=== PATIENT | male | born 1990 | race Two or more races ===

== ENCOUNTER 2018-09-17 18:13 | Emergency (ER) | payer SELFPAY ==
[~2018-09-17] VITALS: Ht 188 cm; Wt 95.3 kg
[2018-09-17 18:25] VITALS: BP 128/76
[2018-09-17] MEDS ORDERED: LORazepam Inj 2mg/ml 1ml IM ONE (18:45)
[2018-09-17] MEDS ORDERED: DiphenhydrAMINE 50mg/ml Inj IM ONE (18:45)
[2018-09-17] MEDS ORDERED: Haloperidol 5mg/ml Inj IM ONE (18:45)
[2018-09-17 19:38] LABS: BASOPHILS % (AUTO) 1.9 % (0.0-2.0); EOSINOPHILS % (AUTO) 1.7 % (0.0-3.0); HEMATOCRIT 37.7 % (42.0-52.0); HEMOGLOBIN 12.7 G/DL (14.2-18.0); LYMPHOCYTES % (AUTO) 40.4 % (20.0-45.0); MEAN CORPUSCULAR VOLUME 84 FL (80-99); MONOCYTES % (AUTO) 11.8 % (1.0-10.0); NEUTROPHILS % (AUTO) 44.2 % (45.0-75.0); PLATELET COUNT 309 K/UL (150-450); RED CELL DISTRIBUTION WIDTH 12.3 % (11.6-14.8); WHITE BLOOD COUNT 3.8 K/UL (4.8-10.8)
[2018-09-17 19:49] LABS: ANION GAP 11 mmol/L (5-15); BLOOD UREA NITROGEN 10 mg/dL (7-18); CALCIUM 9.1 MG/DL (8.5-10.1); CARBON DIOXIDE 27 MMOL/L (21-32); CHLORIDE 107 MMOL/L (98-107); CREATININE 1.2 MG/DL (0.55-1.30); POTASSIUM 3.1 MMOL/L (3.5-5.1); SODIUM 145 MMOL/L (136-145)
[2018-09-17 19:54] LABS: ALANINE AMINOTRANSFERASE 39 U/L (12-78); ALBUMIN 4.1 G/DL (3.4-5.0); ALBUMIN/GLOBULIN RATIO 1.5 (1.0-2.7); ALKALINE PHOSPHATASE 55 U/L (46-116); ASPARTATE AMINO TRANSFERASE 45 U/L (15-37); BILIRUBIN,TOTAL 0.6 MG/DL (0.2-1.0)
--- NOTE | 2018-09-17 19:58 | Emergency Room Report ---
History of Present Illness General Chief Complaint: Behavioral Complaint Source: EMS (Dain Wells MD) Present Illness HPI Patient is a 28-year-old male brought in by EMS with [employer] reportedly throwing objects at a store. Patient was noted to be behaving somewhat bizarrely. History is markedly limited by poor historian. (Dain Wells MD) Allergies: Coded Allergies: No Known Allergies (Unverified , 09/17/18) Patient History Past Medical History: see triage record Reviewed Nursing Documentation: PMH: Agreed; PSxH: Agreed (Dain Wells MD) Nursing Documentation-PMH Past Medical History: No Stated History (Dain Wells MD) Review of Systems All Other Systems: limited - Review of systems: Review systems is limited by patient's being a poor historian (Dain Wells MD) Physical Exam Vital Signs Date Time Temp Pulse Resp B/P (MAP) Pulse Ox O2 Delivery O2 Flow Rate FiO2 09/17/18 18:08 100 20 134/80 (98) 99 Room Air General Appearance: normal inspection, alert/responsive Eyes: normal eye exam ENT: hearing intact Respiratory: normal inspection, effort normal Gastrointestinal: normal inspection, non-tender, no mass Musculoskeletal: normal inspection Neurologic: CN II-XII intact, motor strength/tone normal, other - Speech normal. Psychiatric: other - Speech coherent without any definite slurring. Poorly cooperative Skin: normal inspection (Dain Wells MD) Medical Decision Making Diagnostic Impression: Primary Impression: Substance abuse ER Course Patient presented for increased agitation. Differential diagnoses include substance abuse, psychosis, bipolar disorder, depression, malingering. Patient was noted to have no external signs of trauma. Patient was placed medicated with Haldol, Ativan and Benadryl due to agitation. Patient was noted to have some improvment in agitation subsequently. Patient was endorsed to Dr. Glover pending reevaluation. Labs Test 09/17/18 19:27 White Blood Count 3.8 K/UL (4.8-10.8) Red Blood Count 4.50 M/UL (4.70-6.10) Hemoglobin 12.7 G/DL (14.2-18.0) Hematocrit 37.7 % (42.0-52.0) Mean Corpuscular Volume 84 FL (80-99) Mean Corpuscular Hemoglobin 28.1 PG (27.0-31.0) Mean Corpuscular Hemoglobin Concent 33.6 G/DL (32.0-36.0) Red Cell Distribution Width 12.3 % (11.6-14.8) Platelet Count 309 K/UL (150-450) Mean Platelet Volume 5.0 FL (6.5-10.1) Neutrophils (%) (Auto) 44.2 % (45.0-75.0) Lymphocytes (%) (Auto) 40.4 % (20.0-45.0) Monocytes (%) (Auto) 11.8 % (1.0-10.0) Eosinophils (%) (Auto) 1.7 % (0.0-3.0) Basophils (%) (Auto) 1.9 % (0.0-2.0) Sodium Level 145 MMOL/L (136-145) Potassium Level 3.1 MMOL/L (3.5-5.1) Chloride Level 107 MMOL/L (98-107) Carbon Dioxide Level 27 MMOL/L (21-32) Anion Gap 11 mmol/L (5-15) Blood Urea Nitrogen 10 mg/dL (7-18) Creatinine 1.2 MG/DL (0.55-1.30) Estimat Glomerular Filtration Rate > 60 mL/min (>60) Glucose Level 95 MG/DL (74-106) Calcium Level 9.1 MG/DL (8.5-10.1) Total Bilirubin 0.6 MG/DL (0.2-1.0) Aspartate Amino Transf (AST/SGOT) 45 U/L (15-37) Alanine Aminotransferase (ALT/SGPT) 39 U/L (12-78) Alkaline Phosphatase 55 U/L (46-116) Total Protein 6.9 G/DL (6.4-8.2) Albumin 4.1 G/DL (3.4-5.0) Globulin 2.8 g/dL Albumin/Globulin Ratio 1.5 (1.0-2.7) Salicylates Level 0.9 ug/mL (2.8-20) Urine Opiates Screen Negative (NEGATIVE) Acetaminophen Level < 2 MCG/ML (10-30) Urine Barbiturates Screen Negative (NEGATIVE) Phencyclidine (PCP) Screen Negative (NEGATIVE) Urine Amphetamines Screen Positive (NEGATIVE) Urine Benzodiazepines Screen Negative (NEGATIVE) Urine Cocaine Screen Negative (NEGATIVE) Urine Marijuana (THC) Screen Negative (NEGATIVE) Serum Alcohol < 3 mg/dL (Dain Wells MD) ER Course Patient rested comfortably throughout the night This morning at approximately 6:00 patient has awakened His name was obtained patient reports that he has been on Seroquel previously and requesting that medication. Denies any homicidal or suicidal thoughts Patient was provided with medication here and stable for close follow-up does not meet criteria for further psychiatric evaluation at this time Labs Test 09/17/18 19:27 White Blood Count 3.8 K/UL (4.8-10.8) Red Blood Count 4.50 M/UL (4.70-6.10) Hemoglobin 12.7 G/DL (14.2-18.0) Hematocrit 37.7 % (42.0-52.0) Mean Corpuscular Volume 84 FL (80-99) Mean Corpuscular Hemoglobin 28.1 PG (27.0-31.0) Mean Corpuscular Hemoglobin Concent 33.6 G/DL (32.0-36.0) Red Cell Distribution Width 12.3 % (11.6-14.8) Platelet Count 309 K/UL (150-450) Mean Platelet Volume 5.0 FL (6.5-10.1) Neutrophils (%) (Auto) 44.2 % (45.0-75.0) Lymphocytes (%) (Auto) 40.4 % (20.0-45.0) Monocytes (%) (Auto) 11.8 % (1.0-10.0) Eosinophils (%) (Auto) 1.7 % (0.0-3.0) Basophils (%) (Auto) 1.9 % (0.0-2.0) Sodium Level 145 MMOL/L (136-145) Potassium Level 3.1 MMOL/L (3.5-5.1) Chloride Level 107 MMOL/L (98-107) Carbon Dioxide Level 27 MMOL/L (21-32) Anion Gap 11 mmol/L (5-15) Blood Urea Nitrogen 10 mg/dL (7-18) Creatinine 1.2 MG/DL (0.55-1.30) Estimat Glomerular Filtration Rate > 60 mL/min (>60) Glucose Level 95 MG/DL (74-106) Calcium Level 9.1 MG/DL (8.5-10.1) Total Bilirubin 0.6 MG/DL (0.2-1.0) Aspartate Amino Transf (AST/SGOT) 45 U/L (15-37) Alanine Aminotransferase (ALT/SGPT) 39 U/L (12-78) Alkaline Phosphatase 55 U/L (46-116) Total Protein 6.9 G/DL (6.4-8.2) Albumin 4.1 G/DL (3.4-5.0) Globulin 2.8 g/dL Albumin/Globulin Ratio 1.5 (1.0-2.7) Salicylates Level 0.9 ug/mL (2.8-20) Urine Opiates Screen Negative (NEGATIVE) Acetaminophen Level < 2 MCG/ML (10-30) Urine Barbiturates Screen Negative (NEGATIVE) Phencyclidine (PCP) Screen Negative (NEGATIVE) Urine Amphetamines Screen Positive (NEGATIVE) Urine Benzodiazepines Screen Negative (NEGATIVE) Urine Cocaine Screen Negative (NEGATIVE) Urine Marijuana (THC) Screen Negative (NEGATIVE) Serum Alcohol < 3 mg/dL (Kary Glover DO) Last Vital Signs Date Time Temp Pulse Resp B/P (MAP) Pulse Ox O2 Delivery O2 Flow Rate FiO2 09/17/18 18:25 98 18 128/76 100 Room Air (Dain Wells MD) Status: improved (Kary Glover DO) Disposition: HOME, SELF-CARE Condition: Improved Scripts Quetiapine Fumarate* (SEROQUEL*) 100 Mg Tablet 100 MG ORAL DAILY, #20 TAB Prov: Kary Glover DO 09/18/18 Additional Instructions: Patient is provided with the discharge instructions notified to follow up with primary doctor in the next 2-3 days otherwise return to the er with any worsening symptoms. Please note that this report is being documented using [employer] technology. This can lead to erroneous entry secondary to incorrect interpretation by the dictating instrument. Dain Wells MD Sep 17, 2018 19:58 Kary Glover DO Sep 18, 2018 06:08
[2018-09-18] MEDS ORDERED: SEROQUEL100 MG ORAL (06:09)
[2018-09-18 06:18] VITALS: BP 128/76
== END 2018-09-18 06:19 | disposition home or self-care (01) ==
LOC: EDBD 18:13 → EMR 18:25 → EDBD 18:25 → EMR 09-18 06:19
DX: F19.10 Other psychoactive substance abuse, uncomplicated (principal)
CPT/HCPCS: 36415; 80053; 80307; 85025; 96372; 99284; G0480; J1200; J1630; 80329